=== PATIENT | male | born 1975 | race Caucasian/White ===

== ENCOUNTER 2018-03-09 00:19 | Emergency (ER) | payer OTHER ==
[~2018-03-09] VITALS: Ht 180.3 cm; Wt 153.0 kg
[~2018-03-09 00:19] MED LIST: NORCO 5/3251 TABLET PO
[2018-03-09 00:22] VITALS: BP 138/95
== END 2018-03-09 02:45 | disposition home or self-care (01) ==
LOC: EME 00:19
PROC: 069Y3ZZ Drainage of Lower Vein, Percutaneous Approach (ICD-10-PCS; principal; 2018-03-09)
DX: K64.5 Perianal venous thrombosis (principal)
CPT/HCPCS: 99281; 99284